=== PATIENT | female | born 1960 | race Caucasian/White ===

== ENCOUNTER 2017-09-07 17:59 | Observation (INO) | payer BC ==
[2017-09-07] MEDS ORDERED: Sodium Chloride 0.9% 10 ML Syringe FLUSH PRN (20:08)
[2017-09-07] MEDS ORDERED: Sodium Chloride 0.9% 100 ML IV SCH (20:15)
[2017-09-07] MEDS ORDERED: Iopamidol 755 Mg/ML 100 ML Bottle IV SCH (20:15)
--- NOTE | 2017-09-07 20:46 | EDM.PDOC ---
ED HPI GENERAL MEDICAL PROBLEM - General Chief Complaint: Neurological Problem Stated Complaint: FORGETFULNESS,SHORT TERM MEMORY LOSS Time Seen by Provider: 09/07/17 19:53 Source of Information: Reports: Patient, Family ( and 2 daughters and sister), RN Notes Reviewed History Limitations: Reports: Other (patient has definite recent memory loss) - History of Present Illness INITIAL COMMENTS - FREE TEXT/NARRATIVE: brought here with family members as above Chief complaint Memory loss History of present illness 57-year-old female who together with her and 2 daughters are visiting from [facility] where they live. Her sister lives here. She was fine today with and has not had any recent illness or infection or injury, but around noon, shortly after eating a breakfast of cereal while thereafter cabin and [place] the dock, she suddenly seemed to be forgetful and somewhat confused. She would repeatedly ask questions and have been answered already. She could not remember how long she had been in [place]. She did not remember the date. She does not remember eating or what activity she had done earlier in the day. She had no troubles with walking no troubles with balance on the dock. No sudden weakness of arm or leg No facial droop No headache no nausea no vomiting and no difficulties breathing. She feels fine other than she is a bit bothered by her forgetfulness. No history of similar problem previously Past history is significant for hysterectomy for prolapse, and her current medications include thyroid medicine antidepressant and hormone replacement. She does remember distant events, she remembers tripping over a fire hydrant about 2 months ago and she was laughing about that. Denies Pain Score (Numeric/FACES): 0 - Related Data Allergies Allergy/AdvReac Type Severity Reaction Status Date / Time No Known Allergies Allergy Verified 09/07/17 18:31 Home Meds: Home Meds FLUoxetine HCl [Fluoxetine HCl] 10 mg PO DAILY 09/07/17 [History] Levothyroxine 75 mcg PO ACBREAKFAST 09/07/17 [History] Past Medical History HEENT History: Reports: Impaired Vision [employer] History: Reports: Musculoskeletal History: Reports: Fracture, Other (See Below) Other Musculoskeletal History: fx coccyx Psychiatric History: Reports: Anxiety Endocrine/Metabolic History: Reports: Hypothyroidism - Infectious Disease History Infectious Disease History: Reports: Chicken Pox - Past Surgical History GI Surgical History: Reports: Colonoscopy Social & Family History - Tobacco Use Smoking Status *Q: Never Smoker Second Hand Smoke Exposure: No - Caffeine Use Caffeine Use: Reports: Coffee, Soda, Tea - Recreational Drug Use Recreational Drug Use: No ED ROS GENERAL - Review of Systems Review Of Systems: See Below Constitutional: Reports: Fatigue (feels tired). Denies: Fever, Chills, Weakness , Diaphoresis, Decreased Appetite HEENT: Reports: No Symptoms Respiratory: Reports: No Symptoms Cardiovascular: Reports: No Symptoms GI/Abdominal: Reports: No Symptoms : Reports: No Symptoms Musculoskeletal: Reports: No Symptoms Skin: Reports: No Symptoms Neurological: Reports: Confusion, Other (short-term memory loss). Denies: Dizziness, Headache, Numbness, Paresthesia, Pre-Existing Deficit, Seizure, Syncope, Tingling, Tremors, Trouble Speaking, Difficulty Walking, Weakness, Change in Speech, Gait Disturbance Psychiatric: Reports: No Symptoms Hematologic/Lymphatic: Reports: No Symptoms Immunologic: Reports: No Symptoms ED EXAM, NEURO - Physical Exam Exam: See Below Exam Limited By: Other (recent memory loss, does not remember recent events) General Appearance: Alert, No Apparent Distress, Other (minimal elevation blood pressure otherwise vital signs normal, no difficulty speaking or breathing, color normal) Eye Exam: Bilateral Eye: EOMI, Normal Inspection Ears: Normal External Exam, Normal Canal, Hearing Grossly Normal, Normal TMs Nose: Normal Inspection Throat/Mouth: Normal Inspection, Normal Oropharynx, Normal Voice Head Exam: Atraumatic, Normocephalic Neck: Normal Inspection, Supple, Non-Tender Respiratory/Chest: No Respiratory Distress, Lungs Clear, Normal Breath Sounds, No Accessory Muscle Use Cardiovascular: Normal Peripheral Pulses, Regular Rate, Rhythm, No Murmur GI/Abdominal: Soft, Non-Tender, No Distention Neurological: Alert, Normal Mood/Affect, Normal Gait, Normal Reflexes, No Motor/ Sensory Deficits, Other (normal tandem gait, no facial droop, no focal weakness ; she could not remember the precise month year or date, she does not remember any recent events. No dysnomia. Answers questions and follows instructions without difficulty. Normal gait.). No: Abnormal Finger to Nose, Abnormal Sensation, Abnormal Motor Back Exam: Normal Inspection Extremities: Normal Inspection, Non-Tender Psychiatric: Normal Affect, Normal Mood Skin Exam: Warm, Dry, Intact, Normal Color, No Rash Course - Vital Signs Last Recorded V/S: Last Vital Signs Temp 37.7 C 09/07/17 18:40 Pulse 79 09/07/17 22:29 Resp 14 09/07/17 22:29 BP 138/79 09/07/17 22:29 Pulse Ox 93 L 09/07/17 22:29 - Orders/Labs/Meds Orders: Active Orders 24 hr Category Date Time Status EKG Documentation Completion [RC] ASDIRECTED Care 09/07/17 20:08 Active Peripheral IV Care [RC] . DIRECTED Care 09/07/17 20:08 Active Ang Head [CT] Stat Exams 09/07/17 20:11 Taken Ang Neck [CT] Stat Exams 09/07/17 20:11 Taken Head wo Cont [CT] Stat Exams 09/07/17 20:10 Taken Soft Tissue Neck wo Cont [CT] Stat Exams 09/07/17 20:48 Taken UA W/MICROSCOPIC [URIN] Stat Lab 09/07/17 20:19 Ordered Iopamidol [Isovue-370 (76%)] Med 09/07/17 20:15 Active 100 ml IV . DIRECTED Sodium Chloride 0.9% [Normal Saline] 100 ml Med 09/07/17 20:15 Active IV ASDIRECTED Sodium Chloride 0.9% [Saline Flush] Med 09/07/17 20:08 Active 10 ml FLUSH ASDIRECTED PRN Peripheral IV Insertion Adult [OM.PC] Routine Oth 09/07/17 20:08 Ordered EKG 12 Lead [EK] Routine Ther 09/07/17 20:08 Ordered Medication Orders Sodium Chloride (Normal Saline) 100 mls @ 3 mls/sec IV ASDIRECTED RADHA Last Admin: 09/07/17 21:42 Dose: 3 mls/sec Iopamidol (Isovue-370 (76%)) 100 ml IV . DIRECTED RADHA Last Admin: 09/07/17 21:42 Dose: 100 ml Sodium Chloride (Saline Flush) 10 ml FLUSH ASDIRECTED PRN PRN Reason: Keep Vein Open Last Admin: 09/07/17 21:42 Dose: 10 ml Labs: Laboratory Tests 09/07/17 09/07/17 09/07/17 Range/Units 20:08 20:08 20:19 WBC 6.6 (4.5-11.0) K/uL RBC 4.93 (3.30-5.50) M/uL Hgb 13.5 (12.0-15.0) g/dL Hct 41.4 (36.0-48.0) % MCV 84 (80-98) fL MCH 27 (27-31) pg MCHC 33 (32-36) % Plt Count 410 H (150-400) K/uL Sodium 139 L (140-148) mmol/L Potassium 3.7 (3.6-5.2) mmol/L Chloride 103 (100-108) mmol/L Carbon Dioxide 25 (21-32) mmol/L Anion Gap 14.7 H (5.0-14.0) mmol/L BUN 11 (7-18) mg/dL Creatinine 1.0 (0.6-1.0) mg/dL Est Cr Clr Drug Dosing 54.51 mL/min Estimated GFR (MDRD) 57 L (>60) Glucose 160 H (74-106) mg/dL Calcium 8.6 (8.5-10.1) mg/dL Total Bilirubin 0.3 (0.2-1.0) mg/dL AST 19 (15-37) U/L ALT 30 (12-78) U/L Alkaline Phosphatase 73 (46-116) U/L Troponin I < 0.017 (0.000-0.056) ng/mL Total Protein 7.3 (6.4-8.2) g/dL Albumin 3.7 (3.4-5.0) g/dL Globulin 3.6 H (2.3-3.5) g/dL Albumin/Globulin Ratio 1.0 L (1.2-2.2) Urine Color Yellow Urine Appearance Clear Urine pH 6.5 (4.5-8.0) Ur Specific [place] 1.005 L (1.008-1.030) Urine Protein Negative (NEGATIVE) mg/dL Urine Glucose (UA) Normal (NEGATIVE) mg/dL Urine Ketones Negative (NEGATIVE) mg/dL Urine Occult Blood Negative (NEGATIVE) Urine Nitrite Negative (NEGATIVE) Urine Bilirubin Negative (NEGATIVE) Urine Urobilinogen Normal (NORMAL) mg/dL Ur Leukocyte Esterase Negative (NEGATIVE) Urine RBC Not seen (0-5) Urine WBC 0-5 (0-5) Ur Epithelial Cells Few Amorphous Sediment Not seen Urine Bacteria Not seen Urine Mucus Not seen Meds: Medications Generic Name Dose Route Start Last Admin Trade Name Freq PRN Reason Stop Dose Admin Sodium Chloride 100 mls @ 3 mls/sec 09/07/17 20:15 09/07/17 21:42 Normal Saline IV 3 mls/sec ASDIRECTED RADHA Administration Iopamidol 100 ml 09/07/17 20:15 09/07/17 21:42 Isovue-370 (76%) IV 100 ml . DIRECTED RADHA Administration Sodium Chloride 10 ml 09/07/17 20:08 09/07/17 21:42 Saline Flush FLUSH 10 ml ASDIRECTED PRN Administration Keep Vein Open - Re-Assessments/Exams Free Text/Narrative Re-Assessment/Exam: 09/07/17 20:47 57-year-old female with acute onset of memory loss, nearly 8 hours ago. No neurological deficits otherwise on exam. Differential diagnosis TIA, stroke, cerebrovascular bleed or occlusion, less likely to be psychiatric illness, other metabolic problems Saline lock labs ordered, CT head and neck with angiogram 09/07/17 21:23 blood glucose is 160 otherwise no significant abnormality in her CBC or metabolic profile, no evidence of acidosis, creatinine is normal EKG shows sinus rhythm, rate 87, normal-appearing EKG 09/07/17 22:38 CT scan head and neck and CT angiogram head and neck negative for acute findings Discussed with neurology Possible amnesia but also possible temporal lobe stroke, encephalitis or encephalopathy Overnight admission/observation recommended Nonurgent MRI Discussed with on-call physician Departure - Departure Time of Disposition: 22:39 Disposition: Refer to Observation Condition: Good Clinical Impression: Encephalopathy acute, Elevated blood sugar - Discharge Information - My Orders Last 24 Hours: My Active Orders 09/07/17 20:08 EKG Documentation Completion [RC] ASDIRECTED Peripheral IV Care [RC] . DIRECTED Sodium Chloride 0.9% [Saline Flush] 10 ml FLUSH ASDIRECTED PRN Peripheral IV Insertion Adult [OM.PC] Routine EKG 12 Lead [EK] Routine 09/07/17 20:10 Head wo Cont [CT] Stat 09/07/17 20:11 Ang Head [CT] Stat Ang Neck [CT] Stat 09/07/17 20:15 Iopamidol [Isovue-370 (76%)] 100 ml IV . DIRECTED Sodium Chloride 0.9% [Normal Saline] 100 ml IV ASDIRECTED 09/07/17 20:19 UA W/MICROSCOPIC [URIN] Stat 09/07/17 20:48 Soft Tissue Neck wo Cont [CT] Stat - Assessment/Plan Last 24 Hours: My Active Orders 09/07/17 20:08 EKG Documentation Completion [RC] ASDIRECTED Peripheral IV Care [RC] . DIRECTED Sodium Chloride 0.9% [Saline Flush] 10 ml FLUSH ASDIRECTED PRN Peripheral IV Insertion Adult [OM.PC] Routine EKG 12 Lead [EK] Routine 09/07/17 20:10 Head wo Cont [CT] Stat 09/07/17 20:11 Ang Head [CT] Stat Ang Neck [CT] Stat 09/07/17 20:15 Iopamidol [Isovue-370 (76%)] 100 ml IV . DIRECTED Sodium Chloride 0.9% [Normal Saline] 100 ml IV ASDIRECTED 09/07/17 20:19 UA W/MICROSCOPIC [URIN] Stat 09/07/17 20:48 Soft Tissue Neck wo Cont [CT] Stat
--- NOTE | 2017-09-08 00:08 | HP ---
CHIEF COMPLAINT: Memory impairment. HISTORY OF PRESENT ILLNESS: A 57-year-old who was otherwise quite healthy, visiting from [place] with her family. Apparently, about noon, she all of a sudden developed some memory impairment where she had trouble with short-term memory, which progressed. She felt like she has been in a fog all day, although she feels like she is better at this point. Family noticed this, they brought her into the emergency room for further evaluation. She was evaluated by the emergency room physician. Currently with no focal findings other than some memory recall problems, but CT of her brain was normal. Lab work was normal, not explaining her symptoms. The emergency room physician did talk to Neurology who felt that she should be watched under observation and if there is not any improvement, consideration for an MRI tomorrow could be obtained. The patient states she has had maybe just minimal headache. No vision problems. She has had no chest pain or trouble breathing. Otherwise, no other neurologic symptoms such as numbness or weakness of her arms or legs. No speaking or swallowing problems. PAST MEDICAL HISTORY: Hysterectomy. MEDICATIONS: She is on thyroid medication. She is also on some type of topical natural hormone and has just a Prozac. ALLERGIES: NO KNOWN DRUG ALLERGIES. SOCIAL HISTORY: Remote just light smoker. No alcohol use. Lives in [place], here visiting. FAMILY HISTORY: Noncontributory. REVIEW OF SYSTEMS: Just some slight headache. No vision problems. No other neurologic symptoms. No chest pain or shortness of breath. No bowel or bladder trouble. No skin problems. OBJECTIVE: VITAL SIGNS: Temperature 37.7, weight 85 kg, pulse 79, blood pressure 138/79, respirations 14, O2 saturation 93% on room air. GENERAL: The patient seems to be confused to time, place, and person, although she thinks that things are improving from when it 1st started. HEENT: Pharynx clear. NECK: Supple. No obvious thyromegaly, JVD, carotid bruits. No sign of any nuchal rigidity. LUNGS: Clear. HEART: Regular without murmurs. ABDOMEN: Soft, nontender. No mass OR organomegaly palpated. EXTREMITIES: No edema. SKIN: Negative. NEUROLOGIC: Cranial nerves 2 through 12 grossly intact. Moves all extremities equally. Strength and sensation are intact to both upper and lower extremities. No cerebellar dysfunction. LABORATORY AND DIAGNOSTIC DATA: CT scan of her brain was unremarkable. CTA was unremarkable. Labs: White count 6.6, hemoglobin 13.5, platelets 410,000. Sodium 139, potassium 3.7, BUN 11, creatinine 1.0, glucose was elevated at 160. Liver functions were normal. Troponin less than 0.017. Urine was clear. ASSESSMENT AND PLAN: Memory impairment, etiology uncertain. Question of maybe spontaneous amnesia. No other neurologic focal findings. I did talk to her family. We will admit her under observation and transfer care to the Hospitalist Service in the morning. Anticipate less than 2 midnight stays. Other medical problems as listed above. All Dejesus MD /[id number]
[2017-09-08] MEDS: Sodium Chloride 0.9% 1,000 ML IV SCH ×2 (01:00→08:59)
[2017-09-08] MEDS ORDERED: Acetaminophen 325 MG Tab PO PRN (01:04)
[2017-09-08] MEDS ORDERED: Levothyroxine 75 MCG Tab PO SCH (07:30)
[2017-09-08] MEDS ORDERED: FLUoxetine 10 MG Cap PO SCH (09:00)
[2017-09-08] MEDS ORDERED: LORazepam 2 MG/ML SDV IVPUSH ONE (10:00)
[2017-09-08] MEDS ORDERED: Gadoteridol 279.3 MG/ML 15 ML SDV IV SCH (11:00)
--- NOTE | 2017-09-08 11:18 | MR ---
Brain w wo Cont HISTORY: Amnesia. COMPARISON: None TECHNIQUE: The brain was imaged in the axial, coronal, and sagittal planes utilizing T1 pre and postc ontrast, T2, FLAIR, and diffusion-weighted techniques. FINDINGS: There is normal signal intensity throughout the brain. There are no space occupying lesions . There are no pathologic areas of enhancement. There is no mass effect or edema. There is no evidenc e for cerebral or subdural hemorrhage. Diffusion-weighted images demonstrate no findings of acute isc hemia. The ventricles and CSF spaces are appropriate for age. The brainstem and posterior fossa are u nremarkable. Normal appearing flow voids are demonstrated throughout the cerebral vasculature. The or bital structures are unremarkable. No inflammatory sinus disease is demonstrated. IMPRESSION: Negative exam of the brain. No acute intracranial abnormalities are demonstrated.
--- NOTE | 2017-09-08 12:26 | PCM.DCSUM1 ---
Discharge Summary - Hospital Course Brief History: Ms. Wood is a 57-year-old woman who is admitted through the emergency department observation status for further evaluation and monitoring of amnesia. - Discharge Data Discharge Date: 09/08/17 Discharge Disposition: Home, Self-Care 01 Condition: Good - Discharge Diagnosis/Problem(s) (1) Transient global amnesia SNOMED Code(s): 736204817 ICD Code: G45.4 - TRANSIENT GLOBAL AMNESIA Status: Acute Current Visit: Yes - Patient Summary/Data Hospital Course: 57-year-old female who together with her and 2 daughters are visiting from [facility] where they live. She was fine today with and has not had any recent illness or infection or injury, but around noon, shortly after eating a breakfast of cereal cabin, she suddenly seemed to be forgetful and somewhat confused. She would repeatedly ask questions and have been answered already. She could not remember how long she had been in [place]. She did not remember the date. She does not remember eating or what activity she had done earlier in the day. She had no troubles with walking no troubles [place] the dock.No sudden weakness of arm or leg, no facial droop, no headache no nausea no vomiting and no difficulties breathing. She feels fine other than she is a bit bothered by her forgetfulness. No history of similar problem previously. Past history is significant for hysterectomy for prolapse, and her current medications include thyroid medicine antidepressant and hormone replacement. She does remember distant events, she remembers tripping over a fire hydrant about 2 months ago and she was laughing about that. CT scan of the head and neck as well as CT angiogram of the head were obtained in the emergency department and showed no acute abnormalities to explain her current symptoms. White blood cell count was within normal range and she was afebrile with stable vital signs. Findings reviewed with neurology who recommended that she been admitted overnight with a follow-up MRI in the a.m. She was admitted to observation status and remained stable through the night with improvement in her memory, on the morning of discharge she noted no significant memory deficits. No other neurologic abnormalities were identified during hospitalization. MRI of the brain with and without contrast was obtained prior to discharge and was interpreted as normal showing no significant abnormalities. Activity will be as tolerated and she will resume her usual diet. Follow-up appointment should be scheduled with her primary care provider within one week. Consider outpatient follow-up with neurology. - Patient Instructions Diet: Usual Diet as Tolerated Activity: As Tolerated Other/Special Instructions: Please schedule follow-up appointment with primary care provider within one week. Consider outpatient neurology consultation. - Discharge Plan Home Medications: Home Meds FLUoxetine HCl [Fluoxetine HCl] 30 mg PO DAILY 09/07/17 [History] Levothyroxine 75 mcg PO ACBREAKFAST 09/07/17 [History] - Discharge Summary/Plan Comment DC Time >30 min.: No - Patient Data Vitals - Most Recent: Last Vital Signs Temp 96.3 F 09/08/17 12:11 Pulse 70 09/08/17 12:11 Resp 16 09/08/17 12:11 BP 121/66 09/08/17 12:11 Pulse Ox 99 09/08/17 12:11 Weight - Most Recent: 187 lb 3.182 oz I&O - Last 24 hours: Intake & Output 09/07/17 09/08/17 09/08/17 22:59 06:59 14:59 Intake Total 703 Output Total 1300 800 Balance -597 -800 Lab Results - Last 24 hrs: Laboratory Results - last 24 hr 09/07/17 09/07/17 09/07/17 Range/Units 20:08 20:08 20:19 WBC 6.6 (4.5-11.0) K/uL RBC 4.93 (3.30-5.50) M/uL Hgb 13.5 (12.0-15.0) g/dL Hct 41.4 (36.0-48.0) % MCV 84 (80-98) fL MCH 27 (27-31) pg MCHC 33 (32-36) % Plt Count 410 H (150-400) K/uL Sodium 139 L (140-148) mmol/L Potassium 3.7 (3.6-5.2) mmol/L Chloride 103 (100-108) mmol/L Carbon Dioxide 25 (21-32) mmol/L Anion Gap 14.7 H (5.0-14.0) mmol/L BUN 11 (7-18) mg/dL Creatinine 1.0 (0.6-1.0) mg/dL Est Cr Clr Drug Dosing 54.51 mL/min Estimated GFR (MDRD) 57 L (>60) Glucose 160 H (74-106) mg/dL Calcium 8.6 (8.5-10.1) mg/dL Total Bilirubin 0.3 (0.2-1.0) mg/dL AST 19 (15-37) U/L ALT 30 (12-78) U/L Alkaline Phosphatase 73 (46-116) U/L Troponin I < 0.017 (0.000-0.056) ng/mL Total Protein 7.3 (6.4-8.2) g/dL Albumin 3.7 (3.4-5.0) g/dL Globulin 3.6 H (2.3-3.5) g/dL Albumin/Globulin Ratio 1.0 L (1.2-2.2) Urine Color Yellow Urine Appearance Clear Urine pH 6.5 (4.5-8.0) Ur Specific [place] 1.005 L (1.008-1.030) Urine Protein Negative (NEGATIVE) mg/dL Urine Glucose (UA) Normal (NEGATIVE) mg/dL Urine Ketones Negative (NEGATIVE) mg/dL Urine Occult Blood Negative (NEGATIVE) Urine Nitrite Negative (NEGATIVE) Urine Bilirubin Negative (NEGATIVE) Urine Urobilinogen Normal (NORMAL) mg/dL Ur Leukocyte Esterase Negative (NEGATIVE) Urine RBC Not seen (0-5) Urine WBC 0-5 (0-5) Ur Epithelial Cells Few Amorphous Sediment Not seen Urine Bacteria Not seen Urine Mucus Not seen Med Orders - Current: Current Medications Acetaminophen (Tylenol) 650 mg PO Q4H PRN PRN Reason: Pain Last Admin: 09/08/17 01:20 Dose: 650 mg Fluoxetine HCl (Prozac) 10 mg PO DAILY [facility] Gadoteridol (Prohance) 15 ml IV .A DIRECTED [facility] Stop: 09/08/17 16:00 Last Admin: 09/08/17 11:04 Dose: 15 ml Sodium Chloride (Normal Saline) 1,000 mls @ 100 mls/hr IV ASDIRECTED [facility] Last Admin: 09/08/17 08:59 Dose: 100 mls/hr Iopamidol (Isovue-370 (76%)) 100 ml IV . DIRECTED [facility] Stop: 09/08/17 20:16 Last Admin: 09/07/17 21:42 Dose: 100 ml Levothyroxine Sodium (Levothyroxine) 75 mcg PO ACBREAKFAST [facility] Sodium Chloride (Saline Flush) 10 ml FLUSH ASDIRECTED PRN PRN Reason: Keep Vein Open Last Admin: 09/07/17 21:42 Dose: 10 ml Discontinued Medications Sodium Chloride (Normal Saline) 100 mls @ 3 mls/sec IV ASDIRECTED RADHA Last Admin: 09/07/17 21:42 Dose: 3 mls/sec Lorazepam (Ativan) 0.5 mg IVPUSH ONETIME ONE Stop: 09/08/17 10:01
== END 2017-09-08 14:16 | disposition home or self-care (01) ==
LOC: JP.ED 17:59 → JP.MS 23:26
PROVIDERS: ADMIT Family Medicine; ATTEND Family Medicine
DX: G45.4 Transient global amnesia (principal); E03.9 Hypothyroidism, unspecified; F17.210 Nicotine dependence, cigarettes, uncomplicated; Z79.899 Other long term (current) drug therapy
CPT/HCPCS: 36415; 70450; 70490; 70496; 70498; 70553; 80053; 81001; 84484; 85027; 93005; 96360; 96361; 99285; A9270; A9576; G0378; J7030; J7050; Q9967